=== PATIENT | male | born 1950 | race Caucasian/White ===

== ENCOUNTER → 2023-11-07 17:09 | Outpatient (REF) | payer OTHER, SELFPAY | LOC: PAVMRI 17:09 | PROVIDERS: ATTENDING PHYSICIAN Orthopaedic Surgery; FAMILY PHYSICIAN Nurse Practitioner Family | DX: M25.551 Pain in right hip (principal) | CPT/HCPCS: 73721 ==

== ENCOUNTER → 2024-08-06 14:26 | Outpatient (REF) | payer OTHER, SELFPAY | LOC: MRI 3T 14:26 | PROVIDERS: ATTENDING PHYSICIAN Surgery; FAMILY PHYSICIAN Nurse Practitioner Family | DX: R97.20 Elevated prostate specific antigen [PSA] (principal) | CPT/HCPCS: 72197; A9575 ==

== ENCOUNTER → 2025-06-04 11:31 | Outpatient (REF) | payer OTHER, SELFPAY | LOC: HWRAD 11:31 | PROVIDERS: ATTENDING PHYSICIAN Nurse Practitioner Family | DX: E80.6 Other disorders of bilirubin metabolism (principal) | CPT/HCPCS: 76700 ==